=== PATIENT | female | born 1995 | race Two or more races ===

== ENCOUNTER 2023-04-25 22:13 | Emergency (ER) | payer MEDICAID, OTHER ==
[~2023-04-25] VITALS: Ht 160 cm; Wt 50.0 kg
[2023-04-25 22:49] LABS: Basophils # (auto) 0 10 ^3/uL (0-0.2); Basophils % (auto) 0.1 % (0.0-2.0); Eosinophils # (auto) 0 10 ^3/uL (0-0.8); Eosinophils % (auto) 0.1 % (0.0-7.0); Hematocrit 32.2 % (36.0-46.0); Hemoglobin 10.8 g/dL (12.2-16.2); Lymphocytes # (auto) 0.6 10 ^3/uL (0.4-5.4); Lymphocytes % (auto) 7.5 % (10.0-50.0); Mean Corpuscular Hemoglobin 28.1 pg (28.0-32.0); Mean Corpuscular Hgb Conc. 33.5 g/dL (32.0-36.0); Mean Corpuscular Volume 84.1 fL (80.0-100.0); Monocytes # (auto) 0.6 10 ^3/uL (0-1.3); Neutrophils # (auto) 7.2 10 ^3/uL (1.6-8.6); Neutrophils % (auto) 85.3 % (37.0-80.0); Red Blood Cells 3.83 10^6/uL (4.0-5.20); Red Cell Distribution Width 15.3 % (11.8-14.3); White Blood Cell 8.4 10^3/uL (4.4-10.8)
[2023-04-25 23:13] LABS: INR 1.07 (0.9-1.15); Partial Thromboplastin Time 30.6 SEC (24.5-34.5)
[2023-04-25 23:16] LABS: Albumin 3.4 g/dL (3.4-5.0); Calcium 8.9 mg/dL (8.5-10.1); Magnesium 2.6 mg/dL (1.6-2.6)
[2023-04-25 23:31] LABS: BUN/Creatinine Ratio 25.4 (10.0-20.0); Bilirubin, Total 0.4 mg/dL (0.2-1.0); Total Protein 8.9 g/dL (6.4-8.2)
[2023-04-26 00:42] LABS: Urine Bacteria FEW /hpf (None Seen); Urine Blood Negative /uL (Negative); Urine Mucus FEW (None Seen); Urine Specific Gravity 1.027 (1.001-1.035); Urine WBC 7 /hpf (0 - 5)
[2023-04-26] MEDS ORDERED: SODIUM CHLORIDE 0.9% 1,000 ML IV ONE (04:00)
[2023-04-26] MEDS ORDERED: LORazepam 0.5 MG TAB PO ONE (04:30)
[2023-04-26] MEDS ORDERED: ALBUTEROL SULF 2.5 MG/0.5ML(0.5%) NEB SOLN NEB ONE (04:30)
[2023-04-26] MEDS ORDERED: LORazepam 2MG/ML-1ML VIAL IV ONE (05:00)
[2023-04-26] MEDS ORDERED: IOHEXOL 350 MG/ML 100ML IJ ONE (05:07)
[2023-04-26 06:40] VITALS: BP 117/69
== END 2023-04-26 07:06 | disposition home or self-care (01) ==
LOC: ER 22:13
DX: R07.9 Chest pain, unspecified (principal); R59.0 Localized enlarged lymph nodes; F41.9 Anxiety disorder, unspecified; Z98.890 Other specified postprocedural states
CPT/HCPCS: 36415; 71045; 71275; 76705; 80053; 81001; 83690; 83735; 83880; 84484; 84702; 85025; 85610; 85730; 93005; 94640; 96361; 96374; 99285; J2060; J7030; Q9967